=== PATIENT | female | born 1990 | race Caucasian/White ===

== ENCOUNTER 2021-12-08 07:37 | Emergency (ER) | payer OTHER | END 2021-12-08 09:16 | LOC: JP.ED 07:37 | DX: R42 Dizziness and giddiness (principal); F17.210 Nicotine dependence, cigarettes, uncomplicated | CPT/HCPCS: 36415; 80048; 84703; 85025; 93005; 99284 ==

== ENCOUNTER 2021-12-13 03:07 | Emergency (ER) | payer OTHER ==
[2021-12-13 04:08] LABS: ESTIMATED GFR 88 mL/min (>60)
== END 2021-12-13 05:24 ==
LOC: JP.ED 03:07
DX: R56.9 Unspecified convulsions (principal); F17.210 Nicotine dependence, cigarettes, uncomplicated; Z79.899 Other long term (current) drug therapy
CPT/HCPCS: 36415; 70450; 80053; 80305-QW; 83605; 85025; 99285